=== PATIENT | male | born 1965 | race African-American/Black ===

== ENCOUNTER 2023-10-06 04:05 | Day surgery (SDC) | payer OTHER ==
[2023-10-05 10:48] VITALS: BMI 30.4
[2023-10-06 09:30] VITALS: RESP 18; TEMP 97.8
[2023-10-06 09:59] VITALS: BP 134/82; PULSE 68
== END 2023-10-06 09:59 | disposition home or self-care (01) ==
LOC: JASU-ENDO 04:05
PROVIDERS: ATTEND Internal Medicine Gastroenterology
PROC: 0DBL8ZX Excision of Transverse Colon, Via Natural or Artificial Opening Endoscopic, Diagnostic (ICD-10-PCS; 2023-10-06)
PROC: 3E0H8KZ Introduction of Other Diagnostic Substance into Lower GI, Via Natural or Artificial Opening Endoscopic (ICD-10-PCS; 2023-10-06)
PROC: 0DBN8ZX Excision of Sigmoid Colon, Via Natural or Artificial Opening Endoscopic, Diagnostic (ICD-10-PCS; principal; 2023-10-06 09:00)
DX: Z12.11 Encounter for screening for malignant neoplasm of colon (principal); C18.7 Malignant neoplasm of sigmoid colon; K63.5 Polyp of colon; K57.30 Diverticulosis of large intestine without perforation or abscess without bleeding; K64.8 Other hemorrhoids; D01.0 Carcinoma in situ of colon
CPT/HCPCS: 88305-TC